=== PATIENT | female | born 1960 | race Caucasian/White ===

== ENCOUNTER 2019-01-30 19:19 | Emergency (ER) | payer SELFPAY ==
[~2019-01-30] VITALS: Ht 147.3 cm; Wt 72.8 kg
[~2019-01-30 19:19] MED LIST: ALBUTEROL0.63 MG/3 INH; ATENOLOL50 MG PO; ATORVASTATIN CA10 MG PO; FOSINOPRIL SODI20 MG PO; MELOXICAM7.5 MG PO; METFORMIN HCL500 MG PO; METOPROLOL TART50 MG PO; PRILOSEC20 MG PO; VALACYCLOVIR500 MG PO
--- OUTSIDE RECORDS SUMMARY | 2019-01-30 19:23 | XMS REPORT | Encounter Summary ---
Author Organization Unknown Address [address] [place] [address] Phone [phone] Care Team Providers Care [employer]er Name Role Phone Chris Malagon MD 3 [phone] [address] 107 [phone] Reason for Visit Type 2 diabetes mellitus without complication; Benign essential hypertension; Mixed hyperlipidemia; diabetic foot exam Instructions 1. Type 2 diabetes mellitus microalbumin:creatinine ratio, urine diabetic ophthalmology referral HbA1c (hemoglobin A1c), blood 2. Benign essential hypertension 3. Mixed hyperlipidemia rosuvastatin 10 mg tablet CMP, serum or plasma lipid panel, serum 4. Screening for malignant neoplasm of cervix gynecology referral 5. Multiple joint pain meloxicam 15 mg tablet rf (rheumatoid factor), serum WINNIE (antinuclear antibodies) igg, ifa, serum uric acid, serum or plasma ccp (cyclic citrullinated peptide) igg, serum erythrocyte sedimentation rate by westergren method C-reactive protein, quantitative 6. Immunization 7. Body mass index 30+ - obesity body mass index: care instructions learning about healthy weight Discussion Note: None recorded. Plan of Care Reminders Provider Appointments Return to Office on or around 03/14/2019 Chris Shahid MD Lab Microalbumin:creatinine Ratio, Urine 12/16/2018 [facility] Rf (Rheumatoid Factor), Serum 12/16/2018 [facility] WINNIE (Antinuclear Antibodies) Igg, Ifa, Serum 12/16/2018 [facility] Uric Acid, Serum or Plasma 12/16/2018 [facility] Ccp (Cyclic Citrullinated Peptide) Igg, Serum 12/16/2018 [facility] Erythrocyte Sedimentation Rate by Westergren Method 12/16/2018 [facility] C-reactive Protein, Quantitative 12/16/2018 [facility] HbA1C (Hemoglobin a1C), Blood 12/16/2018 [facility] CMP, Serum or Plasma 12/16/2018 [facility] Lipid Panel, Serum 12/16/2018 [facility] Referral Diabetic Ophthalmology Referral 12/16/2018 Romaine Shin MD Gynecology Referral 12/16/2018 Procedures None recorded. Surgeries None recorded. Imaging None recorded. Medications Name Start Date albuterol sulfate HFA 90 mcg/actuation aerosol inhaler Inhale 2 puffs every 6-8 hours by inhalation route as needed for 30 days. atorvastatin 20 mg tablet Take 1 tablet every day by oral route in the evening. Benadryl 1/3 OF A TAB AT BEDTIME QD Co Q-10 200 mg capsule QD prn fosinopril 20 mg tablet TAKE 1 TABLET BY MOUTH EVERY DAY DIRECTED hydralazine 50 mg tablet Take 1 tablet twice a day by oral route as directed for 90 days. meloxicam 15 mg tablet TAKE 1 TABLET BY MOUTH EVERY DAY WITH A MEAL Qty 30 only, pt due in office, ollie advise to call office metformin 500 mg tablet TAKE 1 TABLET BY MOUTH EVERY DAY metoprolol tartrate 50 mg tablet TAKE 1 TABLET BY MOUTH EVERY DAY DIRECTED rosuvastatin 10 mg tablet Take 1 tablet every day by oral route as directed for 30 days. triamcinolone acetonide 0.5 % topical cream APPLY A THIN LAYER TO THE AFFECTED AREA(S) BY TOPICAL ROUTE 2 TIMES PER DAY FOR UP 2 WEEKS valacyclovir 500 mg tablet TAKE 1 TABLET BY MOUTH EVERY DAY NEEDED Medications Administered None recorded. Vitals Height Weight BMI Blood Pressure 4 ft 10 in 161 lbs 33.6 kg/m2 (1) 140/90 mm[Hg] (2) 130/86 mm[Hg] Lab Results None recorded. Allergies Code Code System Name Reaction Severity Status Onset Seldane Anaphylaxis Active 166982 RxNorm Vasotec Anaphylaxis Active Problems Name Status Onset Date Source Benign Essential Hypertension Active 09/15/2016 Herpes Simplex Active 09/25/2016 Type 2 Diabetes Mellitus without Complication Active 09/25/2016 Mixed Hyperlipidemia Active 09/25/2016 Body Mass Index 30+ - Obesity Active 09/25/2016 Varicose Veins of Lower Extremity Active 04/02/2017 Asthma Active 07/01/2018 Procedures Date Name Performed by 11/12/2016 Colonoscopy with Biopsy Information not available 06/12/2016 Colonoscopy Information not available 11/12/1983 Delivery Information not available Cholecystectomy (Gall Bladder Removal) Information not available Vaccine List Vaccine Type Hep B, adult 01/11/2016 Social History Smoking Status Never Smoker Past Encounters 12/16/2018 Type 2 Diabetes Mellitus; Benign Essential Hypertension; Mixed Hyperlipidemia; Screening for Malignant Neoplasm of Cervix; Multiple Joint Pain; Immunization; Body Mass Index 30+ - Obesity Chris Shahid MD: [id number] [place] [address], Ph. History of Present Illness Note:F/u on chronic conditions. Needs refill in meds. Compliant with meds. Non compliant with diet or exercise. BS at home 160s fasting. Not checking BPs at home. Side effects: muscle cramps with atorvastatin. Review of Systems Comprehensive General Adult ROS Reported By: Patient Constitutional: Constitutional: no fever Eyes: Eyes: no vision change Cardiovascular: Cardiovascular: no chest pain, no palpitations, no lightheadedness Respiratory: Respiratory: no cough, no wheezing, no shortness of breath Gastrointestinal: Gastrointestinal: no abdominal pain, no nausea, no vomiting, no constipation, no diarrhea Musculoskeletal: Musculoskeletal: no swelling in the extremities, muscle aches, arthralgias/joint pain, back pain Integumentary: Skin: no rashes Neurologic: Neurologic: no loss of consciousness, no headaches Psychiatric: Psych: no depression, no alcohol abuse, no anxiety, no suicidal thoughts Endocrine: Endocrine: no fatigue Physical Exam General Adult Exam (male) Reported By: Patient Constitutional: General Appearance: healthy-appearing, obese. Level of Distress: NAD Psychiatric: Insight: good judgement. Mental Status: active and alert, normal mood, normal affect. Orientation: to time, to place, to person Eyes: Lids and Conjunctivae: non-injected, no discharge ENMT: Lips, Teeth, and Gums: no mouth or lip ulcers. Oropharynx: moist mucous membranes Neck: Neck: supple, trachea midline. Thyroid: no enlargement, non-tender Lungs: Auscultation: breath sounds normal Cardiovascular: Heart Auscultation: RRR, normal S1, normal S2, no murmurs. Neck vessels: no carotid bruits. Pulses including femoral / pedal: normal throughout Abdomen: Inspection and Palpation: soft, non-distended, no tenderness, no guarding Musculoskeletal:: Motor Strength and Tone: normal, normal tone. Joints, Bones, and Muscles: normal movement of all extremities, tenderness. Extremities: no edema Neurologic: Gait and Station: normal gait. Sensation: grossly intact. Reflexes: DTRs 2+ bilaterally throughout Skin: Inspection and palpation: no rash, no lesions
[2019-01-30 20:32] VITALS: BP 171/96
== END 2019-01-30 20:32 | disposition home or self-care (01) ==
LOC: FSED 19:19
DX: R21 Rash and other nonspecific skin eruption (principal); I10 Essential (primary) hypertension; E11.9 Type 2 diabetes mellitus without complications; E78.5 Hyperlipidemia, unspecified
CPT/HCPCS: 99282